=== PATIENT | female | born 1930 | race Caucasian/White ===

== ENCOUNTER → 2017-08-14 | Outpatient (CLI) | payer OTHER ==
[~2017-08-14] MED LIST: BENZONATATE100 MG PO; BIOTIN-D1 GM MC; BUPROPION HCL100 MG PO; CATAPRES0.1 MG PO; CELEXA 20 MG TA20 MG PO; CIPRO500 MG PO; COMBIVENT INH; COUMADIN 3 MG TA3 M1 PO; COUMADIN 5 MG TA5 M1 PO; COZAAR100 MG PO; CRANBERRY200 MG PO; DULCOLAX5 MG PO; EAC MC; ERYTHROCIN PO; ERYTHROMYCIN500 MG PO; FLOMAX0.4 MG PO; FLONASE 0.05%50 MCG NASAL; GLYCOLAX POWDER17 G1 PO; LEVAQUIN 500 M500 M4 PO; LIDOCAINE VISC100 M1 MM; MAXZIDE-25 MG1 EACH PO; MIRALAX17 GM PO; MUCINEX22 ML; NEXIUM40 MG PO; OMEPRAZOLE20 M2 PO; PHENAZOPYRIDIN200 M2 PO; PHENERGAN 25 MG25 M1 PO; PREDNISONE 10 M10 M1 PO; PREDNISONE 20 M20 M1 PO; PROCTOCORT30 MG RC; SIMVASTATIN40 MG PO; TUMS PO; TYLENOL PM EX-1 EACH PO; TYLENOL325 MG PO; UNISOM25 MG PO; VIBRAMYCIN 100100 MG PO; VITAMIN; VITAMIN B-12500 MCG PO; XANAX 0.25 MG0.25 MG PO; ZOFRAN ODT4 M1 PO; [UNRECOGNIZED DRUG - OTHER] PO
== END ==
LOC: M.CT 14:00
DX: M25.562 Pain in left knee (principal)